=== PATIENT | male | born 1935 | race Caucasian/White ===

== ENCOUNTER 2018-10-23 10:55 | Emergency (ER) | payer MEDICARE ==
[~2018-10-23] VITALS: Ht 182.9 cm; Wt 54.0 kg
[~2018-10-23 10:55] MED LIST: ASPI-1393 PO; ATOR20TA PO; CLOP75TA4 PO
[2018-10-23] MEDS ORDERED: SODIUM CHLORIDE 0.9% 1,000 ML IV ONE (11:50)
[2018-10-23 12:21] LABS: BASOPHILS % 0.5 % (0.0-2.0); HEMATOCRIT. 43.7 % (42.0-52.0); HEMOGLOBIN. 14.7 g/dL (14.0-18.0); LYMPHOCYTES % 9.8 % (20.0-50.0); MEAN CORPUSCULAR HEMOGLOBIN 38.1 pg (28.0-32.0); MEAN CORPUSCULAR VOLUME 113.1 fL (80.0-94.0); MEAN PLATELET VOLUME 8.2 fl (7.4-10.4); MONOCYTES % 3.7 % (2.0-8.0); PLATELET 847 x1000/uL (130-400); RED BLOOD CELL COUNT 3.86 mill/uL (4.7-6.1); RED CELL DISTRIBUTION WIDTH 22.6 % (11.6-14.6)
[2018-10-23 12:22] LABS: CHLORIDE 104 mEq/L (98-107); INR 1.1; PROTHROMBIN TIME 11.1 sec (9.6-11.0)
[2018-10-23 12:49] LABS: PLATELET ESTIMATE MARKEDLY INCREASED
[2018-10-23] MEDS ORDERED: CEFTRIAXONE 1 G PREMIX 50 ML IV ONE (16:15)
[2018-10-23 16:42] VITALS: BP 113/61
[2018-10-23 17:11] LABS: CLARITY URINE TURBID (CLEAR); COLOR URINE RED (YELLOW); KETONES URINE NEGATIVE (NEGATIVE); LEUKOCYTE ESTERASE URINE 2+ (NEGATIVE); NITRITE URINE POSITIVE (NEGATIVE); OCCULT BLOOD URINE 2+ (NEGATIVE); PROTEIN URINE 2+ (NEGATIVE); SPECIFIC GRAVITY URINE 1.018 (1.005-1.030); UROBILINOGEN URINE 0.2 E.U./dL (0.2-1.0)
== END 2018-10-23 17:03 | disposition home or self-care (01) ==
LOC: ER 10:55
DX: N39.0 Urinary tract infection, site not specified (principal); R31.0 Gross hematuria; I11.9 Hypertensive heart disease without heart failure
CPT/HCPCS: 36415; 80053; 81003; 85025; 85610; 87077; 87086; 87186; 96365; 99283; J0696; J7030

== ENCOUNTER 2019-02-23 11:21 | Emergency (ER) | payer MEDICARE ==
[~2019-02-23] VITALS: Ht 182.9 cm; Wt 55.0 kg
[~2019-02-23 11:21] MED LIST changes: -ASPI-1393 PO; +ASPI-1497 PO
[2019-02-23] MEDS ORDERED: SODIUM CHLORIDE 0.9% 1000ML BAG (SEPSIS BOLUS) IV ONE (15:00)
[2019-02-23] MEDS ORDERED: CEFTRIAXONE 1 G PREMIX 50 ML IV ONE (15:00)
[2019-02-23 15:27] LABS: BASOPHILS % 0.6 % (0.0-2.0); EOSINOPHILS % 0.8 % (0.0-5.0); HEMATOCRIT. 51.3 % (42.0-52.0); HEMOGLOBIN. 17.2 g/dL (14.0-18.0); MEAN CORPUSCULAR HEMOGLOBIN 37.4 pg (28.0-32.0); MEAN CORPUSCULAR VOLUME 111.6 fL (80.0-94.0); MEAN PLATELET VOLUME 8.7 fl (7.4-10.4); MONOCYTES % 4.5 % (2.0-8.0); NEUTROPHILS % 75.1 % (40.0-76.0); PLATELET 554 x1000/uL (130-400); RED CELL DISTRIBUTION WIDTH 17.2 % (11.6-14.6)
[2019-02-23 15:34] LABS: CHLORIDE 105 mEq/L (98-107)
[2019-02-23 16:31] LABS: PLATELET ESTIMATE INCREASED
[2019-02-23 16:34] LABS: INR 1.1; PARTIAL THROMBOPLASTIN TIME 35.3 sec (23.4-31.0); PROTHROMBIN TIME 11.2 sec (9.6-11.0)
[2019-02-23 16:59] LABS: CLARITY URINE TURBID (CLEAR); COLOR URINE RED (YELLOW); KETONES URINE NEGATIVE (NEGATIVE); LEUKOCYTE ESTERASE URINE 3+ (NEGATIVE); NITRITE URINE POSITIVE (NEGATIVE); OCCULT BLOOD URINE 2+ (NEGATIVE); PH URINE 8.5 (4.5-8.0); PROTEIN URINE 2+ (NEGATIVE); SPECIFIC GRAVITY URINE 1.016 (1.005-1.030); UROBILINOGEN URINE 0.2 E.U./dL (0.2-1.0)
[2019-02-23 18:25] VITALS: BP 131/79
== END 2019-02-23 18:35 | disposition home or self-care (01) ==
LOC: ER 11:31
DX: N39.0 Urinary tract infection, site not specified (principal); E86.0 Dehydration; I11.9 Hypertensive heart disease without heart failure; Z79.899 Other long term (current) drug therapy
CPT/HCPCS: 36415; 80053; 81003; 83605; 84145; 85025; 85610; 85730; 86850; 86900; 86901; 87040; 87077; 87086; 87186; 96365; 96366; 99283; J0696; J7030

== ENCOUNTER 2019-02-27 13:25 | Inpatient (IN) | payer MEDICARE ==
[~2019-02-27] VITALS: Ht 182.9 cm; Wt 63.0 kg
[2019-02-27] VITALS (35 sets, daily range): BP systolic 82–121; BP diastolic 43–88
[2019-02-27] MEDS ORDERED: ONDANSETRON HCL 4MG/2ML INJ IV STA (13:46)
[2019-02-27] MEDS ORDERED: SODIUM CHLORIDE 0.9% 1000ML BAG (SEPSIS BOLUS) IV ONE (14:00)
[2019-02-27] MEDS ORDERED: PHENYLEPHRINE 10 MG in DEXT 5% WATER 249 ML IV STA (14:03)
[2019-02-27] MEDS ORDERED: IOHEXOL-300 100 ML BOTTLE ONE (14:09)
[2019-02-27] MEDS ORDERED: LIDOCAINE HCL 1% 20ML VIAL (Pyxis) INJ ONE (14:09)
[2019-02-27] MEDS ORDERED: IODIXANOL 320MG/ML 100 ML BOTTLE IV ONE (14:09)
[2019-02-27] MEDS ORDERED: ASPIRIN/SOD BICARB/CITRIC ACID 324MG TAB EFF ONE (14:12)
[2019-02-27] MEDS ORDERED: DOPAMINE 400MG/250ML PREMIX 250 ML IV ONE (14:13)
[2019-02-27] MEDS ORDERED: ASPIRIN 325MG TABLET PO ONE (14:15)
[2019-02-27 14:35] LABS: BASOPHILS % 0.6 % (0.0-2.0); EOSINOPHILS % 0.3 % (0.0-5.0); HEMATOCRIT. 47.7 % (42.0-52.0); HEMOGLOBIN. 16.1 g/dL (14.0-18.0); LYMPHOCYTES % 13.3 % (20.0-50.0); MEAN CORPUSCULAR HEMOGLOBIN 37.9 pg (28.0-32.0); MEAN CORPUSCULAR VOLUME 112.4 fL (80.0-94.0); MEAN PLATELET VOLUME 9.1 fl (7.4-10.4); MONOCYTES % 3.6 % (2.0-8.0); NEUTROPHILS % 82.2 % (40.0-76.0); PLATELET 470 x1000/uL (130-400); RED BLOOD CELL COUNT 4.25 mill/uL (4.7-6.1); RED CELL DISTRIBUTION WIDTH 17.1 % (11.6-14.6)
[2019-02-27] MEDS ORDERED: ATROPINE SULFATE 0.1MG/ML 10ML DISP.SYRIN ONE ×2 (14:39→15:17)
[2019-02-27 14:41] LABS: CHLORIDE 107 mEq/L (98-107); PROTHROMBIN TIME 10.8 sec (9.6-11.0)
[2019-02-27 14:46] LABS: ETHANOL BLOOD < 10 mg/dL
[2019-02-27 14:48] LABS: PLATELET ESTIMATE SLIGHTLY INCREASED
[2019-02-27] MEDS ORDERED: IODIXANOL 320MG/ML 200ML BOTTLE ONE (15:18)
[2019-02-27] MEDS ORDERED: CLOPIDOGREL 75MG TABLET ONE (15:22)
[2019-02-27] MEDS ORDERED: CLOPIDOGREL 75MG TABLET PO NR (15:30)
[2019-02-27] MEDS ORDERED: ATROPINE SULFATE 1MG/10ML SYR IV PRN (15:30)
[2019-02-27] MEDS ORDERED: ACETAMINOPHEN 325MG TABLET PO PRN (15:30)
[2019-02-27] MEDS ORDERED: ONDANSETRON HCL 4MG/2ML INJ IV PRN (15:30)
[2019-02-27] MEDS ORDERED: MORPHINE SULFATE 2 MG/ML CPJ (NOT FOR IM USE) IV PRN (15:30)
[2019-02-27] MEDS ORDERED: HEPARIN SODIUM 1,000 UNIT/1ML VIAL IV ONE (16:34)
[2019-02-27] MEDS ORDERED: PHENYLEPHRINE 100MCG/ML 10ML VIAL (CATH LAB) IV ONE (16:34)
[2019-02-27] MEDS ORDERED: NICARDIPINE 100MCG/ML 10ML VIAL (CATH LAB) IV ONE (16:34)
[2019-02-27] MEDS ORDERED: NITROGLYCERIN 50MCG/ML 10ML VIAL (CATH LAB) IV ONE (16:34)
[2019-02-27] MEDS ORDERED: SODIUM CHLORIDE 0.45% 600 ML IV ONE (17:30)
[2019-02-27] MEDS: ATORVASTATIN CALCIUM 40MG TABLET PO SCH (20:16)
[2019-02-27] MEDS: DOPAMINE 400MG/250ML PREMIX 250 ML IV PRN (22:06)
[2019-02-28] VITALS (92 sets, daily range): BP systolic 76–119; BP diastolic 27–75
[2019-02-28 05:50] LABS: BASOPHILS % 0.4 % (0.0-2.0); EOSINOPHILS % 0.3 % (0.0-5.0); HEMOGLOBIN. 13.9 g/dL (14.0-18.0); LYMPHOCYTES % 13.6 % (20.0-50.0); MEAN CORPUSCULAR HEMOGLOBIN 37.9 pg (28.0-32.0); MEAN CORPUSCULAR VOLUME 111.4 fL (80.0-94.0); MEAN PLATELET VOLUME 8.6 fl (7.4-10.4); MONOCYTES % 6.1 % (2.0-8.0); NEUTROPHILS % 79.6 % (40.0-76.0); PLATELET 414 x1000/uL (130-400); RED BLOOD CELL COUNT 3.68 mill/uL (4.7-6.1)
[2019-02-28 06:03] LABS: CHLORIDE 106 mEq/L (98-107)
[2019-02-28] MEDS: DOPAMINE 400MG/250ML PREMIX 250 ML IV PRN ×2 (06:30→20:12)
[2019-02-28] MEDS: ASPIRIN 325MG TABLET PO SCH (09:21)
[2019-02-28] MEDS: CLOPIDOGREL 75MG TABLET PO SCH (09:21)
[2019-02-28 18:10] LABS: CLARITY URINE TURBID (CLEAR); COLOR URINE YELLOW (YELLOW); KETONES URINE NEGATIVE (NEGATIVE); LEUKOCYTE ESTERASE URINE 3+ (NEGATIVE); NITRITE URINE NEGATIVE (NEGATIVE); OCCULT BLOOD URINE 2+ (NEGATIVE); PROTEIN URINE 2+ (NEGATIVE); SPECIFIC GRAVITY URINE 1.022 (1.005-1.030); UROBILINOGEN URINE 0.2 E.U./dL (0.2-1.0)
[2019-02-28] MEDS ORDERED: MAGNESIUM 2 G PREMIX 50 ML IV PRN (19:00)
[2019-02-28] MEDS: ATORVASTATIN CALCIUM 40MG TABLET PO SCH (20:12)
[2019-02-28] MEDS: NITROFURANTOIN 100MG M/M CAPSULE PO SCH (20:12)
[2019-03-01] VITALS (76 sets, daily range): BP systolic 78–127; BP diastolic 39–78
[2019-03-01 06:43] LABS: BASOPHILS % 0.6 % (0.0-2.0); HEMOGLOBIN. 13.6 g/dL (14.0-18.0); LYMPHOCYTES % 16.8 % (20.0-50.0); MEAN CORPUSCULAR HEMOGLOBIN 37.9 pg (28.0-32.0); MEAN PLATELET VOLUME 9.3 fl (7.4-10.4); MONOCYTES % 7.6 % (2.0-8.0); PLATELET 312 x1000/uL (130-400); RED CELL DISTRIBUTION WIDTH 16.5 % (11.6-14.6)
[2019-03-01 07:07] LABS: CHLORIDE 106 mEq/L (98-107)
[2019-03-01] MEDS: NITROFURANTOIN 100MG M/M CAPSULE PO SCH ×2 (08:46→21:09)
[2019-03-01] MEDS: ASPIRIN 325MG TABLET PO SCH (08:46)
[2019-03-01] MEDS: CLOPIDOGREL 75MG TABLET PO SCH (08:46)
[2019-03-01] MEDS ORDERED: MAGNESIUM 1 G PREMIX 100 ML IV ONE (09:15)
[2019-03-01] MEDS: ATORVASTATIN CALCIUM 40MG TABLET PO SCH (21:09)
[2019-03-02] VITALS (26 sets, daily range): BP systolic 84–127; BP diastolic 48–97
[2019-03-02 06:45] LABS: BASOPHILS % 0.9 % (0.0-2.0); EOSINOPHILS % 1.2 % (0.0-5.0); HEMATOCRIT. 34.1 % (42.0-52.0); HEMOGLOBIN. 11.3 g/dL (14.0-18.0); LYMPHOCYTES % 17.9 % (20.0-50.0); MEAN CORPUSCULAR HEMOGLOBIN 37.3 pg (28.0-32.0); MEAN CORPUSCULAR VOLUME 111.9 fL (80.0-94.0); MEAN PLATELET VOLUME 9.3 fl (7.4-10.4); MONOCYTES % 6.9 % (2.0-8.0); NEUTROPHILS % 73.1 % (40.0-76.0); PLATELET 243 x1000/uL (130-400); RED BLOOD CELL COUNT 3.04 mill/uL (4.7-6.1); RED CELL DISTRIBUTION WIDTH 16.3 % (11.6-14.6)
[2019-03-02 06:46] LABS: CHLORIDE 104 mEq/L (98-107)
[2019-03-02] MEDS: ASPIRIN 325MG TABLET PO SCH (09:35)
[2019-03-02] MEDS: NITROFURANTOIN 100MG M/M CAPSULE PO SCH ×2 (09:35→21:56)
[2019-03-02] MEDS: CLOPIDOGREL 75MG TABLET PO SCH (09:35)
[2019-03-02] MEDS: ATORVASTATIN CALCIUM 40MG TABLET PO SCH (21:56)
[2019-03-03] VITALS (10 sets, daily range): BP systolic 101–113; BP diastolic 60–83
[2019-03-03 08:09] LABS: BASOPHILS % 0.7 % (0.0-2.0); HEMATOCRIT. 40.7 % (42.0-52.0); HEMOGLOBIN. 13.9 g/dL (14.0-18.0); MEAN CORPUSCULAR HEMOGLOBIN 37.9 pg (28.0-32.0); MEAN PLATELET VOLUME 9.5 fl (7.4-10.4); MONOCYTES % 5.8 % (2.0-8.0); NEUTROPHILS % 75.5 % (40.0-76.0); PLATELET 346 x1000/uL (130-400); RED BLOOD CELL COUNT 3.67 mill/uL (4.7-6.1); RED CELL DISTRIBUTION WIDTH 17.2 % (11.6-14.6)
[2019-03-03 08:24] LABS: CHLORIDE 105 mEq/L (98-107)
[2019-03-03] MEDS: CLOPIDOGREL 75MG TABLET PO SCH (08:24)
[2019-03-03] MEDS: NITROFURANTOIN 100MG M/M CAPSULE PO SCH (08:24)
[2019-03-03] MEDS: ASPIRIN 325MG TABLET PO SCH (08:24)
== END 2019-03-03 16:00 | disposition home or self-care (01) | DRG 251 ==
LOC: ER 13:34 → CVICU 14:12 → EDBEDREQSVC 14:15 → EDBEDREQTM 14:15 → EDBEDREQ 14:15 → 3WST 03-02 15:03
PROVIDERS: ADMIT Specialist; ATTEND Specialist
PROC: 02703ZZ Dilation of Coronary Artery, One Artery, Percutaneous Approach (ICD-10-PCS; principal; 2019-02-27)
PROC: 4A023N7 Measurement of Cardiac Sampling and Pressure, Left Heart, Percutaneous Approach (ICD-10-PCS; 2019-02-27)
PROC: 5A12012 Performance of Cardiac Output, Single, Manual (ICD-10-PCS; 2019-02-27)
PROC: B2111ZZ Fluoroscopy of Multiple Coronary Arteries using Low Osmolar Contrast (ICD-10-PCS; 2019-02-27)
PROC: 02HV33Z Insertion of Infusion Device into Superior Vena Cava, Percutaneous Approach (ICD-10-PCS; 2019-02-28)
PROC: B548ZZA Ultrasonography of Superior Vena Cava, Guidance (ICD-10-PCS; 2019-02-28)
DX: I21.19 ST elevation (STEMI) myocardial infarction involving other coronary artery of inferior wall (principal); I25.10 Atherosclerotic heart disease of native coronary artery without angina pectoris; I10 Essential (primary) hypertension; I95.9 Hypotension, unspecified; E78.5 Hyperlipidemia, unspecified; J44.9 Chronic obstructive pulmonary disease, unspecified; E78.00 Pure hypercholesterolemia, unspecified; F17.200 Nicotine dependence, unspecified, uncomplicated; Z95.5 Presence of coronary angioplasty implant and graft; I25.2 Old myocardial infarction; Z71.6 Tobacco abuse counseling; Z79.899 Other long term (current) drug therapy
CPT/HCPCS: 36415; 71045; 76937; 80048; 80053; 80320; 81003; 82553; 82962; 83605; 83735; 83880; 84145; 84484; 85025; 85347; 86850; 86900; 87077; 87186; 92941; 93005; 93306; 93454; 99291; C1725; C1769; C1887; C1893; J0461; J1265; J1644; J2370; J3475; J3490; J7030; J7060; Q9967; G0480

== ENCOUNTER → 2019-03-24 | Emergency (ER) | payer MEDICARE ==
[~2019-03-24] VITALS: Ht 182.9 cm; Wt 55.0 kg
[~2019-03-24] MED LIST changes: +CEFTRIAXONE 1 G PREMIX 50 ML IV ONE
[2019-03-24 09:58] LABS: BASOPHILS % 0.4 % (0.0-2.0); EOSINOPHILS % 0.7 % (0.0-5.0); HEMATOCRIT. 45.1 % (42.0-52.0); HEMOGLOBIN. 15.6 g/dL (14.0-18.0); LYMPHOCYTES % 16.8 % (20.0-50.0); MEAN CORPUSCULAR HEMOGLOBIN 38.8 pg (28.0-32.0); MEAN CORPUSCULAR VOLUME 112.5 fL (80.0-94.0); MEAN PLATELET VOLUME 8.3 fl (7.4-10.4); MONOCYTES % 4.6 % (2.0-8.0); NEUTROPHILS % 77.5 % (40.0-76.0); PLATELET 516 x1000/uL (130-400); RED BLOOD CELL COUNT 4.01 mill/uL (4.7-6.1); RED CELL DISTRIBUTION WIDTH 17.2 % (11.6-14.6)
[2019-03-24 10:00] LABS: CHLORIDE 107 mEq/L (98-107)
[2019-03-24 10:44] LABS: COLOR URINE RED (YELLOW); KETONES URINE 1+ (NEGATIVE); LEUKOCYTE ESTERASE URINE 2+ (NEGATIVE); NITRITE URINE POSITIVE (NEGATIVE); OCCULT BLOOD URINE 3+ (NEGATIVE); PROTEIN URINE 3+ (NEGATIVE); SPECIFIC GRAVITY URINE 1.019 (1.005-1.030)
[2019-03-24 10:44] LABS: PLATELET ESTIMATE INCREASED
[2019-03-24 10:48] LABS: CLARITY URINE BLOODY (CLEAR)
[2019-03-24 12:40] VITALS: BP 115/64
== END | disposition home or self-care (01) ==
LOC: ER 08:46
DX: N39.0 Urinary tract infection, site not specified (principal); R31.9 Hematuria, unspecified; I11.9 Hypertensive heart disease without heart failure; I25.2 Old myocardial infarction; Z95.5 Presence of coronary angioplasty implant and graft; Z79.899 Other long term (current) drug therapy; Z79.82 Long term (current) use of aspirin
CPT/HCPCS: 36415; 71045; 80053; 81003; 85025; 87077; 87086; 87186; 96365; 99284; J0696

== ENCOUNTER 2019-05-23 04:14 | Emergency (ER) | payer MEDICARE ==
[~2019-05-23] VITALS: Ht 182.9 cm; Wt 56.0 kg
[~2019-05-23 04:14] MED LIST changes: -CEFTRIAXONE 1 G PREMIX 50 ML IV ONE
[2019-05-23] MEDS ORDERED: SODIUM CHLORIDE 0.9% 1,000 ML IV ONE (04:44)
[2019-05-23 05:37] LABS: CLARITY URINE TURBID (CLEAR); COLOR URINE ORANGE (YELLOW); KETONES URINE NEGATIVE (NEGATIVE); LEUKOCYTE ESTERASE URINE 3+ (NEGATIVE); NITRITE URINE POSITIVE (NEGATIVE); OCCULT BLOOD URINE 3+ (NEGATIVE); PH URINE 8.5 (4.5-8.0); PROTEIN URINE 2+ (NEGATIVE); SPECIFIC GRAVITY URINE 1.017 (1.005-1.030)
[2019-05-23 05:42] LABS: CHLORIDE 108 mEq/L (98-107); HEMATOCRIT. 44.8 % (42.0-52.0); HEMOGLOBIN. 15.2 g/dL (14.0-18.0); MEAN CORPUSCULAR HEMOGLOBIN 39.5 pg (28.0-32.0); MEAN CORPUSCULAR VOLUME 116.3 fL (80.0-94.0); MEAN PLATELET VOLUME 8.7 fl (7.4-10.4); PLATELET 492 x1000/uL (130-400); RED BLOOD CELL COUNT 3.85 mill/uL (4.7-6.1); RED CELL DISTRIBUTION WIDTH 15.9 % (11.6-14.6)
[2019-05-23 05:52] LABS: PLATELET ESTIMATE NORMAL
[2019-05-23 06:00] VITALS: BP 103/61
[2019-05-23] MEDS ORDERED: CEFAZOLIN 1000MG PREMIX 50 ML IV ONE (06:30)
== END 2019-05-23 07:14 | disposition home or self-care (01) ==
LOC: ER 04:14
DX: T83.098A Other mechanical complication of other urinary catheter, initial encounter (principal); N39.0 Urinary tract infection, site not specified; X58.XXXA Exposure to other specified factors, initial encounter; I10 Essential (primary) hypertension; I25.2 Old myocardial infarction; Z98.890 Other specified postprocedural states; Z79.899 Other long term (current) drug therapy
CPT/HCPCS: 36415; 80053; 81003; 85025; 87077; 87086; 87186; 96365; 99284; J7030

== ENCOUNTER 2019-07-06 18:04 | Emergency (ER) | payer MEDICARE ==
[~2019-07-06] VITALS: Ht 182.9 cm; Wt 58.5 kg
[2019-07-06 20:34] VITALS: BP 137/85
== END 2019-07-06 20:37 | disposition home or self-care (01) ==
LOC: ER 18:04
DX: R33.9 Retention of urine, unspecified (principal); I10 Essential (primary) hypertension; I25.2 Old myocardial infarction; F17.290 Nicotine dependence, other tobacco product, uncomplicated; Z79.82 Long term (current) use of aspirin
CPT/HCPCS: 51702; 99284

== ENCOUNTER 2019-07-20 13:26 | Emergency (ER) | payer MEDICARE ==
[~2019-07-20] VITALS: Ht 182.9 cm; Wt 57.0 kg
[2019-07-20] MEDS ORDERED: KETOROLAC 30MG/ML VIAL IV STA (14:25)
[2019-07-20] MEDS ORDERED: SODIUM CHLORIDE 0.9% 1,000 ML IV ONE (14:25)
[2019-07-20 15:29] LABS: CHLORIDE 106 mEq/L (98-107)
[2019-07-20 15:29] LABS: CLARITY URINE TURBID (CLEAR); COLOR URINE YELLOW (YELLOW); KETONES URINE TRACE (NEGATIVE); LEUKOCYTE ESTERASE URINE 2+ (NEGATIVE); NITRITE URINE NEGATIVE (NEGATIVE); OCCULT BLOOD URINE 1+ (NEGATIVE); PH URINE >=9.0 (4.5-8.0); PROTEIN URINE 3+ (NEGATIVE); SPECIFIC GRAVITY URINE 1.016 (1.005-1.030); UROBILINOGEN URINE 0.2 E.U./dL (0.2-1.0)
[2019-07-20 15:32] LABS: BASOPHILS % 0.2 % (0.0-2.0); EOSINOPHILS % 0.7 % (0.0-5.0); HEMATOCRIT. 47.5 % (42.0-52.0); HEMOGLOBIN. 16.6 g/dL (14.0-18.0); LYMPHOCYTES % 12.1 % (20.0-50.0); MEAN CORPUSCULAR HEMOGLOBIN 39.7 pg (28.0-32.0); MEAN CORPUSCULAR VOLUME 113.5 fL (80.0-94.0); MONOCYTES % 2.5 % (2.0-8.0); NEUTROPHILS % 84.5 % (40.0-76.0); PLATELET 653 x1000/uL (130-400); RED BLOOD CELL COUNT 4.19 mill/uL (4.7-6.1)
[2019-07-20 16:39] LABS: PLATELET ESTIMATE MARKEDLY INCREASED
[2019-07-20] MEDS ORDERED: LEVOFLOXACIN 250MG TABLET PO ONE (16:45)
[2019-07-20 18:16] VITALS: BP 132/87
== END 2019-07-20 17:43 | disposition home or self-care (01) ==
LOC: ER 13:26
DX: N39.0 Urinary tract infection, site not specified (principal); I10 Essential (primary) hypertension; I25.2 Old myocardial infarction; Z79.82 Long term (current) use of aspirin; Z79.899 Other long term (current) drug therapy
CPT/HCPCS: 36415; 51702; 80053; 81003; 85025; 87077; 87086; 87186; 93005; 99284; J1885; J7030

== ENCOUNTER 2019-09-20 13:00 | Emergency (ER) | payer MEDICARE ==
[~2019-09-20] VITALS: Ht 182.9 cm; Wt 52.0 kg
[2019-09-20] MEDS ORDERED: SODIUM CHLORIDE 0.9% 1000ML BAG (SEPSIS BOLUS) IV ONE (13:30)
[2019-09-20 14:23] LABS: BASOPHILS % 0.5 % (0.0-2.0); EOSINOPHILS % 2.2 % (0.0-5.0); HEMATOCRIT. 45.3 % (42.0-52.0); HEMOGLOBIN. 15.4 g/dL (14.0-18.0); LYMPHOCYTES % 18.7 % (20.0-50.0); MEAN CORPUSCULAR HEMOGLOBIN 36.2 pg (28.0-32.0); MEAN CORPUSCULAR VOLUME 106.4 fL (80.0-94.0); MEAN PLATELET VOLUME 8.9 fl (7.4-10.4); MONOCYTES % 3.2 % (2.0-8.0); NEUTROPHILS % 75.4 % (40.0-76.0); PLATELET 858 x1000/uL (130-400); RED BLOOD CELL COUNT 4.26 mill/uL (4.7-6.1); RED CELL DISTRIBUTION WIDTH 14.6 % (11.6-14.6)
[2019-09-20 14:29] LABS: CHLORIDE 107 mEq/L (98-107)
[2019-09-20 14:32] LABS: INR 1.1; PROTHROMBIN TIME 11.4 sec (9.6-11.0)
[2019-09-20 14:59] LABS: CLARITY URINE TURBID (CLEAR); KETONES URINE 2+ (NEGATIVE); LEUKOCYTE ESTERASE URINE 3+ (NEGATIVE); NITRITE URINE POSITIVE (NEGATIVE); OCCULT BLOOD URINE 3+ (NEGATIVE); PH URINE 7.5 (4.5-8.0); PROTEIN URINE 4+ (NEGATIVE)
[2019-09-20 15:01] LABS: COLOR URINE BLOODY (YELLOW)
[2019-09-20] MEDS ORDERED: CEFTRIAXONE 1 G PREMIX 50 ML IV ONE (16:45)
[2019-09-20] MEDS ORDERED: NITROFURANTOIN 100MG M/M CAPSULE PO ONE (16:45)
[2019-09-20 18:08] VITALS: BP 124/88
== END 2019-09-20 18:20 | disposition home or self-care (01) ==
LOC: ER 13:15 → CANBEDREQ 18:48
DX: N40.1 Benign prostatic hyperplasia with lower urinary tract symptoms (principal); R33.8 Other retention of urine; N39.0 Urinary tract infection, site not specified; I11.0 Hypertensive heart disease with heart failure; R31.0 Gross hematuria; I50.9 Heart failure, unspecified; R91.1 Solitary pulmonary nodule
CPT/HCPCS: 36415; 71045; 80053; 81003; 82270; 83605; 84145; 84484; 85025; 85610; 86850; 86900; 86901; 87040; 87077; 87086; 87186; 93005; 96361; 96365; 99285; J0696; J7030